=== PATIENT | male | born 1970 | race African-American/Black ===

== ENCOUNTER 2023-01-04 08:11 | Outpatient (AMB) | payer OTHER, SELFPAY ==
--- NOTE | 2023-01-04 08:20 | AM.OFFWIN_ITS ---
Intake Vital Signs 01/04/23 08:24 Height 5 ft 8 in Weight 188 lb BMI 28.6 BP 150/90 H Blood Pressure Location Rt brachial Position Sitting Pulse 86 Pulse Source Pulse Oximeter Temp 97.8 F Pulse Oximetry (%) 97 Oxygen Delivery Method Room Air Intake Visit Reasons: [employer] Sore Throat/Cold (masked) Intake Note: pt is here today for soar throat/cold Allergies No Known Allergies Allergy (Verified 01/04/23 08:29) Do you need a note to return to daycare/school/sports/work: Yes HPI HPI Comments History of Present Illness Details This is a 52-year-old male with no stated past medical history presenting for evaluation of headaches, sore throat and nasal congestion that he has had for the past 5 days. Patient denies having any fevers, chills, shortness of breath or cough. He has been taking NyQuil only without relief of his symptoms. He denies having any recent sick contacts. Review of Systems Const All systems reviewed & are unremarkable except as noted in HPI and below Reports headache(s) Eyes Reports no additional complaints ENT Denies facial pain, Reports headache(s), Denies hearing loss, Reports hoarseness, Denies mouth pain, Reports nasal congestion, Denies nasal discharge, Denies nose pain, Denies sinus pain, Reports sinus pressure, Reports sore throat and Denies throat swelling Card Denies dyspnea Resp Denies cough and Denies dyspnea Musc Reports no additional complaints Neuro Reports headache(s) Psych Reports no additional complaints Aller/Immun Denies throat swelling Physical Exam Vital Signs: Last Vital Signs Temp 97.8 F 01/04/23 08:24 Pulse 86 01/04/23 08:24 BP 150/90 H 01/04/23 08:24 Pulse Ox 97 01/04/23 08:24 Oxygen Delivery Method Room Air 01/04/23 08:24 BMI result Body Mass Index 28.6 Const General: cooperative, healthy appearing, comfortable and no acute distress Nutritional Appearance: average body habitus Orientation/consciousness: patient oriented x3 Limitations: no limitations HEENT Head: Yes normal to inspection and Yes normocephalic Ears: hearing grossly normal bilaterally, external ears normal, EAC's normal and TM abnormal (bulging bilaterally without erythema) General nose exam: Normal external nose present and Normal nares present Face and sinus: Yes normal facial exam, Yes sinuses nontender and No sinus tenderness Mouth: moist mucous membranes Throat: Yes postnasal drainage Eyes General: appearance normal, both eyes and all related structures Eyelids: Yes eyelids normal Conjunctivae: conjunctivae normal Sclerae: sclerae normal EOM: EOMs intact bilaterally Neck Lymphatic: no lymphadenopathy noted Resp Effort & Inspection: normal respiratory effort, able to speak in complete sentences, no cough and no respiratory distress Auscultation: clear to auscultation bilaterally Cardio Rate: regular rate Rhythm: regular rhythm Neuro General: patient oriented x3 Cognition (Neuro): normal cognition Psych Appearance: grossly normal Mental Status: mental status grossly normal Insight: Good insight present (Psych) Judgement: Good judgement present (Psych) Results AMB Rapid Strep AMB Rapid Strep Negative Last Edit by Wilber Parekh CMA on 01/04/23 08 :40 Results Reviewed Results Reviewed: Laboratory Last Values Strep Scn [facility] Negative 01/04/23 08:36 Reviewed with patient. Assessment & Plan Assessment & Plan (1) Upper respiratory infection: Code(s): J06.9 - Acute upper respiratory infection, unspecified Plan Patient's history and examination are consistent with an upper respiratory infection; given his bulging TMs and postnasal drip, patient will be encouraged to use an antihistamine [id number] for his symptoms. Rapid strep test is negative. Orders: Orders AMB Rapid Strep Screen Today Z13.9 - Encounter for screening, unspecified Coding Level of Care Code New Pt Level 3 (64625) Diagnoses Upper respiratory infection J06.9
[2023-01-04 08:24] VITALS: BP 150/90; PULSE 86; TEMP 36.6; O2SAT 97; BMI 28.6
== END 2023-01-04 09:05 | disposition home or self-care (01) ==
PROVIDERS: PCP Internal Medicine; Visit Provider Physician Assistant
DX: J06.9 Acute upper respiratory infection, unspecified (principal); J02.9 Acute pharyngitis, unspecified
CPT/HCPCS: 87880; 99203

== ENCOUNTER 2023-01-04 08:36 | Outpatient (REF) | payer OTHER, SELFPAY | END 2023-01-04 08:37 | disposition home or self-care (01) | LOC: HO.LNP 08:36 | PROVIDERS: Visit Provider Physician Assistant | DX: Z13.89 Encounter for screening for other disorder (principal) ==